=== PATIENT | male | born 1940 | race Caucasian/White ===

== ENCOUNTER 2022-02-08 11:03 | Outpatient (CLI) | payer MEDICARE ==
[2022-02-08 15:15] LABS: ALT (SGPT) 33 U/L (8-55); AST (SGOT) 27 U/L (5-34); Albumin 3.7 g/dL (3.4-4.8); Alkaline Phosphatase 109 U/L (40-110); Anion Gap 17 mmol/L (10-20); BUN (Urea Nitrogen) 10 mg/dL (8.4-25.7); Bilirubin, Total 0.5 mg/dL (0.2-1.2); CRP (Inflammatory) 12.08 mg/dL (= or < 0.5); Calc. Creatinine Clearance 0 mL/min (70-130); Calcium 9.7 mg/dL (7.8-10.44); Carbon Dioxide 27 mmol/L (23-31); Chloride 97 mmol/L (98-107); Estimated GFR 94; Globulin 3.7 g/dL (2.4-3.5); Glucose 102 mg/dL (83-110); Potassium 4.7 mmol/L (3.5-5.1); Protein, Total 7.4 g/dL (5.8-8.1); Sodium 136 mmol/L (136-145)
[2022-02-08 15:50] LABS: Eosinophils 2 % (0-10); Hemoglobin 10.8 g/dL (14.0-18.0); Hypochromia SLIGHT = 6-15 cells (100X) (0-5/hpf); Lymphocytes 29 % (21-51); MDiff Complete? YES; Mean Corpuscular HGB CONC 31.5 g/dL (32.0-36.0); Mean Corpuscular Hemoglobin 30.4 pg (27.0-31.0); Mean Corpuscular Volume 96.6 fL (78.0-98.0); Mean Platelet Volume 5.7 fL (7.4-10.4); Monocytes 27 % (0-10); Neutrophil 34 % (42-75); Platelet Count 614 thou/uL (130-400); Platelet Morphology Comment Appears Increased; Polychromasia SLIGHT = 2-3 cells (100X) (0-2/hpf); RBC Distribution Width 12.6 % (11.5-14.5); Reactive Lymphocytes 8 % (0-10); Red Blood Cell (RBC) Count 3.56 mill/uL (4.70-6.10); White Blood Cell (WBC) Count 4.1 thou/uL (4.8-10.8)
== END 2022-02-08 11:04 | disposition home or self-care (01) ==
LOC: SCSMRI 11:03
PROVIDERS: ATTEND Internal Medicine Infectious Disease
DX: M01.X61 Direct infection of right knee in infectious and parasitic diseases classified elsewhere (principal); I70.90 Unspecified atherosclerosis; M19.012 Primary osteoarthritis, left shoulder; M19.011 Primary osteoarthritis, right shoulder; M25.461 Effusion, right knee; R60.0 Localized edema; M60.061 Infective myositis, right lower leg; M71.21 Synovial cyst of popliteal space [Baker], right knee; S83.281A Other tear of lateral meniscus, current injury, right knee, initial encounter; M67.861 Other specified disorders of synovium, right knee; M23.91 Unspecified internal derangement of right knee; S83.411A Sprain of medial collateral ligament of right knee, initial encounter
CPT/HCPCS: 36415; 71046; 80053; 85025; 86140

== ENCOUNTER 2023-09-26 09:50 | Outpatient (CLI) | payer MEDICARE, OTHER | END 2023-09-26 09:51 | disposition home or self-care (01) | LOC: SCSMRI 09:50 | PROVIDERS: ATTEND Family Medicine | DX: M17.11 Unilateral primary osteoarthritis, right knee (principal); M23.8X1 Other internal derangements of right knee ==

== ENCOUNTER 2025-02-12 14:48 | Outpatient (CLI) | payer MEDICARE, OTHER | END 2025-02-12 14:49 | disposition home or self-care (01) | LOC: RAD 14:48 | PROVIDERS: ATTEND Internal Medicine | DX: Z01.89 Encounter for other specified special examinations (principal); W34.00XS Accidental discharge from unspecified firearms or gun, sequela; J90 Pleural effusion, not elsewhere classified; J98.11 Atelectasis | CPT/HCPCS: 71046 ==